=== PATIENT | female | born 1940 | race American Indian/Alaskan Native ===

== ENCOUNTER 2017-05-21 08:38 | Outpatient (CLI) | payer MEDICARE ==
--- NOTE | 2017-05-21 14:08 | Mammography Report ---
BILATERAL DIGITAL SCREENING MAMMOGRAM WITH CAD: 05/21/17 CLINICAL: Routine screening.Breast cancer survivor status post right mastectomy and TRAM reconstruction . COMPARISON:04/05/16 FINDINGS: The left breast is mostly fatty with a few scattered fibroglandular densities. No mass, architectural distortion or suspicious calcifications. Normal appearance of the right TRAM reconstruction. IMPRESSION: No mammographic evidence of malignancy. BI-RADS CATEGORY: 2 -- Benign RECOMMENDATION: Routine mammographic screening in one year. COMMENT: Patient follow-up letters are generated by our [employer] application.
== END 2017-05-21 08:39 | disposition home or self-care (01) ==
LOC: SPVWC 08:38
PROVIDERS: ATTEND Internal Medicine
DX: Z12.31 Encounter for screening mammogram for malignant neoplasm of breast (principal); Z85.3 Personal history of malignant neoplasm of breast; Z90.11 Acquired absence of right breast and nipple
CPT/HCPCS: 77067; G0202